=== PATIENT | male | born 1985 | race African-American/Black ===

== ENCOUNTER → 2024-05-08 | Outpatient (CLI) | payer OTHER | LOC: MHCPAIN 14:49 | DX: M46.1 Sacroiliitis, not elsewhere classified (principal); M53.3 Sacrococcygeal disorders, not elsewhere classified; M54.50 Low back pain, unspecified | CPT/HCPCS: G0260 ==

== ENCOUNTER → 2024-06-29 | Outpatient (CLI) | payer OTHER | LOC: MHCPAIN 08:42 | DX: M47.817 Spondylosis without myelopathy or radiculopathy, lumbosacral region (principal) | CPT/HCPCS: J0665 ==